=== PATIENT | male | born 1975 | race Caucasian/White ===

== ENCOUNTER 2019-03-30 09:19 | Emergency (ER) | payer OTHER ==
[~2019-03-30] VITALS: Ht 170.2 cm; Wt 85.7 kg
[2019-03-30 09:37] VITALS: BP 181/104
--- NOTE | 2019-03-30 09:45 | NUR ---
Patient ambulated to bed 8. RN evaluating patient at bedside.
--- NOTE | 2019-03-30 09:49 | NUR ---
PT BIB SELF TO THE ED WITH THE CHIEF C/O NUMBNESS ON LEFT ARM SINCE SATURDAY. DENIES ANY PAIN ON THE ARM. +CMS. DENIES FALL. DENIES DIZZINESS. DENIES N/V/D/FEVR. NO MEDICAL HX PER PT. PT STATES HAS PAIN ON BOTH CHEEKS 11/02. DENIES OTHER PROBLEM AT THIS TIME.
--- NOTE | 2019-03-30 11:53 | NUR ---
Dr. Kimbrough re-evaluating patient at bedside.
[2019-03-30 11:59] VITALS: BP 147/85
== END 2019-03-30 11:57 | disposition home or self-care (01) ==
LOC: MED 09:19
DX: M25.512 Pain in left shoulder (principal); Z98.890 Other specified postprocedural states
CPT/HCPCS: 71045; 73030; 93005; 99283; Q0092

== ENCOUNTER 2022-12-03 11:15 | Emergency (ER) | payer OTHER ==
[~2022-12-03] VITALS: Ht 170.2 cm; Wt 76.2 kg
[2022-12-03 11:23] VITALS: BP 156/96
--- NOTE | 2022-12-03 15:01 | NUR ---
MALE Core Driller Helper accompanied MALE patient for Rectal Exam.
[2022-12-03] MEDS ORDERED: KETOROLAC 30 MG/ML VIAL IVP ONE (15:05)
[2022-12-03] MEDS ORDERED: NACL 0.9% 1,000 ML IV ONE ×2 (15:10→17:20)
--- NOTE | 2022-12-03 15:23 | NUR ---
47 Y/O MALE REFERRED BY PMD FOR EVAL OF THE RIGHT BUTTOCK ABSCESS AND PAIN, X8 DAYS, DENIES ANY BLOOD IN STOOL, FEVERS, CHILLS. NKA PMH: DENIES
[2022-12-03 16:06] LABS: BASOPHILS % (AUTO) 0.4 % (0.0-2.0); EOSINOPHILS % (AUTO) 0.1 % (0.0-4.0); HEMATOCRIT 43.5 % (36-52); HEMOGLOBIN 15.1 g/dL (12.0-18.0); LYMPHOCYTES # (AUTO) 1.8 K/uL (2.0-11.5); LYMPHOCYTES % (AUTO) 21.2 % (20.5-51.1); MEAN CORPUSCULAR HEMOGLOBIN 34 pg (27-31); MEAN CORPUSCULAR HGB CONC 35 g/dL (33-37); MEAN CORPUSCULAR VOLUME 97.2 fL (80-94); MONOCYTES # (AUTO) 0.9 K/uL (0.8-1.0); MONOCYTES % (AUTO) 10.7 % (1.7-9.3); NEUTROPHILS # (AUTO) 5.6 K/uL (1.8-7.7); NEUTROPHILS % (AUTO) 67.6 % (42.2-75.2); PLATELET COUNT (AUTO) 155 K/uL (140-450); RED BLOOD CELL COUNT(AUTO) 4.48 MIL/uL (4.20-6.10); RED CELL DISTRIBUTION WIDTH 12.5 % (11.6-13.7); WHITE BLOOD COUNT (AUTO) 8.3 K/uL (4.8-10.8)
--- NOTE | 2022-12-03 16:31 | NUR ---
PT RESTING IN BEDSIDE AT THIS TIME. PT REPORTS COMPLETE RELIEF OF PAIN. ALL NEEDS MET AT THIS TIME.
[2022-12-03 16:50] LABS: ALBUMIN 3.7 g/dL (3.4-5.0); ANION GAP 20.8 (8-16); CARBON DIOXIDE 23.2 mmol/L (21-32); TOTAL BILIRUBIN 0.8 mg/dL (0.0-1.0)
--- NOTE | 2022-12-03 17:03 | NUR ---
PT TAKEN TO CT VIA JEWELS
--- NOTE | 2022-12-03 17:15 | NUR ---
PT BACK FROM CT.
[2022-12-03 17:46] VITALS: BP 147/77
[2022-12-03] MEDS ORDERED: PIPERACILLIN/TAZOBACTAM 3.375 GM in DEXTROSE 5% 50 ML IV ONE (17:55)
[2022-12-03] MEDS ORDERED: DOCU-299 PO (18:16)
[2022-12-03] MEDS ORDERED: IBUP-2213 PO (18:16)
[2022-12-03] MEDS ORDERED: SULF-59 PO (18:16)
--- NOTE | 2022-12-03 18:40 | NUR ---
IV removed, catheter intact and site benign. Applied folded 4x4 gauze and tape to stop bleeding.
--- NOTE | 2022-12-03 18:46 | NUR ---
Patient discharged with v/s stable. Written and verbal after care instructions ABOUT ANORECTAL given and explained. Patient alert, oriented and verbalized understanding of instructions. Ambulatory with steady gait. All questions addressed prior to discharge. ID band removed. Patient advised to follow up with PMD. Rx of COLACE, MOTRIN AND BACTRIM DC given. Patient educated on indication of medication including possible reaction and side effects. Opportunity to ask questions provided and answered.
== END 2022-12-03 18:46 | disposition home or self-care (01) ==
LOC: MED 11:15
DX: K61.1 Rectal abscess (principal); N43.3 Hydrocele, unspecified; Z79.899 Other long term (current) drug therapy
CPT/HCPCS: 36415; 72193; 80053; 83605; 85025; 87040; 96361; 96374; 99285; J1885; J7030; Q9967